=== PATIENT | male | born 1980 | race American Indian/Alaskan Native ===

== ENCOUNTER 2017-11-22 21:51 | Emergency (ER) | payer OTHER ==
[2017-11-22] MEDS ORDERED: PEPCID IV ONE (22:42)
[2017-11-22] MEDS ORDERED: BENADRYL IV ONE (22:42)
[2017-11-22 22:55] LABS: Basophils % (Auto) 0.3 % (0.0-1.8); Eosinophils # (Auto) 0.6 K/mm3 (0.0-0.4); Eosinophils % (Auto) 5.4 % (0.0-4.3); Hematocrit 47.8 % (35.5-45.6); Hemoglobin 15.7 gm/dl (11.8-15.2); Lymphocytes # (Auto) 2.8 K/mm3 (1.2-5.4); Lymphocytes % (Auto) 23.9 % (13.4-35.0); Mean Corpuscular HGB Conc 33 % (32-34); Mean Corpuscular Hemoglobin 29 pg (28-32); Mean Corpuscular Volume 88 fl (84-94); Monocytes # (Auto) 0.6 K/mm3 (0.0-0.8); Monocytes % (Auto) 5.6 % (0.0-7.3); Platelet Count 280 K/mm3 (140-440); Red Blood Count 5.46 M/mm3 (3.65-5.03); Red Cell Distribution Width 13.2 % (13.2-15.2)
[2017-11-22 23:11] LABS: BUN/Creatinine Ratio 12; Blood Urea Nitrogen 11 mg/dL (9-20); Calcium 9.1 mg/dL (8.4-10.2); Hemolysis Index 137
[2017-11-22 23:22] LABS: Alanine Aminotransferase 29 units/L (7-56)
--- NOTE | 2017-11-23 01:00 | Emergency Department Report ---
HPI - General Chief Complaint: Allergic Reaction Time Seen by Provider: 11/23/17 00:55 - HPI HPI: Mr. Choi is a healthy 36 yo male who presents with skin irriation and contact dermatitis after exposure to iritation powder chemical at work. 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 He was not wearing gloves. The skin cleared up after hydrocortisone cream. He received one steroid shot. He also took benadryl. He then developed rash on his arms back ear and groin. He also has inflamed lymph nodes in the inguinal region. He was diagnosed with possible fungal infection. Referred to the ER. He denies shortness of breath. He has scratchy throat. Denies lip swelling. Denies wheezing. ED Past Medical Hx - Past Medical History Previous Medical History?: No - Surgical History Past Surgical History?: No - Social History Smoking Status: Never Smoker Substance Use Type: None - Medications Home Medications: Home Medications Medication Instructions Recorded Confirmed Last Taken Type Clotrimazole [Athlete's Foot] 1 appful TP BID 14 Days #45 11/23/17 Unknown Rx cream..g. Fluconazole [Diflucan TAB] 100 mg PO QDAY 14 Days #14 tablet 11/23/17 Unknown Rx ED Review of Systems ROS: Stated complaint: ALLERGIC REACTION Other details as noted in HPI Comment: All other systems reviewed and negative Constitutional: denies: fever, malaise Respiratory: denies: cough Cardiovascular: denies: chest pain Physical Exam - Physical Exam Vital Signs: Vital Signs 11/22/17 22:24 Temperature 98.4 F Pulse Rate 102 H Respiratory 16 Rate Blood Pressure 127/90 O2 Sat by Pulse 96 Oximetry General: General: Well-appearing, no acute distress HEENT: Normocephalic atraumatic Nose: no rhinorrhea Oropharynx: Clear mucous membranes no lesions Left ear: Scaly patchy rash just anterior to ear Neck: supple, no meningismus Chest: Clear to auscultation bilaterally no rales rhonchi no wheezes Cardiac: Regular rate and rhythm no murmurs no rubs no gallops Abdomen: Soft nontender nondistended positive bowel sounds no guarding Extremities scaly patchy rash bilateral wrists circular patches with central clearing prominent at the right wrist, papular rash involving the hands bilateral elbows mid back large Erythematous scaly patches inner thigh. Neuro: Moves all extremities 4, no gross deficits Psychiatric: Alert and oriented 4 normal affect normal judgment normal insight ED Course Vital Signs 11/22/17 22:24 Temperature 98.4 F Pulse Rate 102 H Respiratory 16 Rate Blood Pressure 127/90 O2 Sat by Pulse 96 Oximetry ED Medical Decision Making - Lab Data Result diagrams: 11/22/17 22:36 11/22/17 22:36 - Medical Decision Making I suspect diffuse tinea corporis. He wears long sleeve shirts and jeans at work with profuse sweating. rx: clotrimazole topical, fluconazole oral Critical care attestation.: If time is entered above; I have spent that time in minutes in the direct care of this critically ill patient, excluding procedure time. ED Disposition Clinical Impression: Tinea corporis Disposition: DC-01 TO HOME OR SELFCARE Is pt being admited?: No Does the pt Need Aspirin: No Condition: Stable Instructions: Tinea Corporis (ED) Prescriptions: Clotrimazole [Athlete's Foot] 1 appful TP BID 14 Days #45 cream..g. Fluconazole [Diflucan TAB] 100 mg PO QDAY 14 Days #14 tablet Time of Disposition: 01:26
[2017-11-23 01:49] VITALS: BP 128/82
== END 2017-11-23 02:08 | disposition home or self-care (01) ==
LOC: ED 21:51
DX: B35.4 Tinea corporis (principal)
CPT/HCPCS: 36415; 80053; 85025; 96374; 96375; 99283; J1200; J2930

== ENCOUNTER 2018-11-02 20:25 | Emergency (ER) | payer OTHER ==
--- NOTE | 2018-11-02 22:50 | Event Note ---
ED Screening Note Date of service: 11/02/18 Time: 22:49 ED Screening Note: 37 y/o male comes in for Rash. This initial assessment/diagnostic orders/clinical plan/treatment(s) is/are subject to change based on patients health status, clinical progression and re- assessment by fellow clinical providers in the ED. Further treatment and workup at subsequent clinical providers discretion. Patient/guardian urged not to elope from the ED as their condition may be serious if not clinically assessed and managed. Initial orders include:
--- NOTE | 2018-11-03 01:03 | Emergency Department Report ---
ED Rash HPI - HPI Chief Complaint: Skin Rash Stated Complaint: SKIN RASH Time Seen by Provider: 11/03/18 00:46 Duration: 3 Days Location: Upper Extremities, Other (groin) Suspected Cause: Other Rash Symptoms: Yes Blistering, No Itching, No Facial Swelling, No Tongue/Oral Swelling, No Breathing Difficulties, No Choking Sensation, No Wheezing/Dyspnea, No Peeling, No Fever, No Lightheaded, No Malaise, No Myalgias Severity: mild, moderate Other History: This is a 37-year-old male who presents to ED complaining of rash on his arms and groin area started 4 days ago. Patient states that he's had this before and was given an antifungal and that cleared up the rash. Patient states that rash is nonitching He denies fevers/chills/nausea vomiting or abdominal pain ED Review of Systems ROS: Stated complaint: SKIN RASH Other details as noted in HPI Comment: All other systems reviewed and negative ED Past Medical Hx - Past Medical History Previous Medical History?: No - Surgical History Past Surgical History?: No - Social History Smoking Status: Never Smoker Substance Use Type: None - Medications Home Medications: Home Medications Medication Instructions Recorded Confirmed Last Taken Type Clotrimazole [Athlete's Foot] 1 appful TP BID 14 Days #45 11/23/17 Unknown Rx cream..g. Clotrimazole [Clotrimazole AF] 1 applic TP TID #1 tube 11/03/18 Unknown Rx Fluconazole [Diflucan TAB] 100 mg PO QDAY 14 Days #14 tablet 11/03/18 Unknown Rx Rash Exam - Exam General: Vital signs noted. No distress. Alert and acting appropriately. HEENT: No Periorbital Edema, No Conjuctival Injection, No Chemosis, No Perioral Edema, No Tongue Edema, No Uvular Edema, No Compromised Airway, No Drooling Lungs: Yes Good Air Exchange (Normal Breath Sounds), No Wheezes, No Ronchi, No Stridor, No Cough, No Labored Respirations, No Retractions, No Use of Accessory Muscles, No Other Abnormal Lung Sounds Heart: Yes Regular, No Murmur Skin: Yes Maculopapular Rash, Yes Other (generalized, rash noted on arms), No Urticarial Rash, No Morbilliform rash, No Bulla(e), No Excoriations, No Weeping, No Tenderness, No Erythema, No Edema, No Encrustations Other: Positive: Abdomen Normal, Neurologic Normal, Musculoskeletal Normal ED Course Vital Signs 11/02/18 11/02/18 20:46 22:47 Temperature 98.5 F 98.5 F Pulse Rate 112 H 112 H Respiratory 18 18 Rate Blood Pressure 146/95 146/95 O2 Sat by Pulse 100 100 Oximetry ED Medical Decision Making - Medical Decision Making 37-year-old male presents with tinea corporis/tinea versicolor Patient will be given antifungal topical and oral. Vital signs are normal patient is in no acute distress. Exam patient is sent instructions given. Discussed follow-up with primary care physician. Critical care attestation.: If time is entered above; I have spent that time in minutes in the direct care of this critically ill patient, excluding procedure time. ED Disposition Clinical Impression: Tinea corporis, Tinea versicolor Disposition: TO HOME OR SELFCARE Is pt being admited?: No Does the pt Need Aspirin: No Condition: Stable Instructions: Tinea Corporis (ED), Tinea Versicolor (ED), Jock Itch (ED) Additional Instructions: Make sure to follow up with the primary care physician as discussed. Take all your medications as you've been prescribed. If you have any worsening symptoms or develop new symptoms please return to ED immediately. Prescriptions: Clotrimazole [Clotrimazole AF] 1 applic TP TID #1 tube Fluconazole [Diflucan TAB] 100 mg PO QDAY 14 Days #14 tablet [facility]errals: [facility]Other[facility] - 3-5 Days Forms: Work/School Release Form(ED) Time of Disposition: :03
[2018-11-03 01:23] VITALS: BP 131/92
== END 2018-11-03 01:45 | disposition home or self-care (01) ==
LOC: ED 20:25
DX: B35.4 Tinea corporis (principal); B36.0 Pityriasis versicolor
CPT/HCPCS: 99282